=== PATIENT | female | born 1970 | race Caucasian/White ===

== ENCOUNTER → 2017-06-19 | Outpatient (CLI) | payer MEDICARE, MEDICAID ==
--- NOTE | 2017-06-21 17:09 | MAM ---
EXAM DESCRIPTION: 3D Screening BILATERAL : Digital Mammography. CLINICAL HISTORY: 46 years Female SCREENING . No complaints. Mother with breast cancer. Hysterectomy. Currently on HRT. COMPARISON: 2-D digital screening bilateral study 01/24/2008. No prior reports available. TECHNIQUE: Bilateral CC and MLO projection full-field images, 3-D tomosynthesis digital mammographic technique. Also bilateral synthesized CC/ MLO full-field images. CAD not utilized. FINDINGS: The breast parenchymal density pattern is: Scattered areas of fibroglandular density. No skin thickening or nipple retraction bilateral solitary microcalcifications. No focal, stellate mass or density, focal asymmetry , and no suspicious microcalcifications bilaterally. Stable mammograms compared to prior study, taking into account differences in mammographic technique IMPRESSION: BI-RADS CATEGORY: 2 - BENIGN FINDINGS. FOLLOW UP: Routine digital bilateral screening, one year interval from June 2017. Written communication explaining the IMPRESSION and follow-up, will be mailed to the patient and referring health care provider. According to the [employer], yearly mammograms are recommended starting at age 40 and continuing as long as a woman is in good health. Any breast change noted on a breast self-exam should be reported promptly to the patient's healthcare provider. Breast MRI is recommended for women with an approximately 20-25% or greater lifetime risk of breast cancer, including women with a strong family history of breast or ovarian cancer and women who have been treated for Hodgkin's disease. A negative mammographic report should not delay tissue diagnosis in patients with significant clinical history or physical findings. Extremely dense breast tissue limits the sensitivity of digital mammography. Electronically signed by: Jm Soriano MD 06/21/2017 5:08 PM [facility]
== END ==
LOC: MAMMO 15:03
PROVIDERS: ATTEND Obstetrics & Gynecology Female Pelvic Medicine and Reconstructive Surgery
DX: Z12.31 Encounter for screening mammogram for malignant neoplasm of breast (principal)

== ENCOUNTER 2017-07-30 01:28 | Emergency (ER) | payer MEDICARE, MEDICAID ==
[2017-07-30] MEDS ORDERED: ALUM & MAG HYDROX-SIMETHICONE 30 ML, LIDOCAINE VISCOUS 2% 15 ML PO ONE ×2 (01:35)
[2017-07-30] MEDS ORDERED: ASPIRIN TABLET 325 MG TAB PO ONE (01:35)
[2017-07-30] MEDS ORDERED: LIDOCAINE HCL 2% (MOUTH-THROAT) 15 ML UD ONE (01:36)
[2017-07-30] MEDS ORDERED: ALUM & MAG HYDROX-SIMETHICONE 30 ML UD ONE (01:36)
[2017-07-30] MEDS ORDERED: NITROGLYCERIN 0.4 MG 25 EA TAB SL ONE ×2 (02:05)
[2017-07-30 02:16] VITALS: O2SAT 99
[2017-07-30] MEDS ORDERED: MORPHINE SULFATE INJ 10 MG/ML VIAL IV ONE (02:23)
[2017-07-30] MEDS ORDERED: HEPARIN SODIUM (PORCINE) 5,000 U/ML VIAL IV ONE (02:24)
[2017-07-30] MEDS ORDERED: CLOPIDOGREL 75 MG TAB PO ONE (02:25)
[2017-07-30] MEDS ORDERED: NITROGLYCERIN 2% 1 GM UD TOP ONE ×2 (02:33→02:34)
--- NOTE | 2017-07-30 02:37 | ED.PDOC ---
History of Present Illness - General Chief Complaint: Chest Pain/[place] Stated Complaint: chest pain, epigastric pain Time Seen by Provider: 07/30/17 01:35 Source: patient Exam Limitations: no limitations - History of Present Illness Initial Comments: the patient is a 46-year-old [place] female presenting to the emergency room secondary to anterior substernal chest pain that is radiating towards the right shoulder starting approximately one hour prior to arrival. She was sitting when it started. No nausea or vomiting. It was giving some cramping up the back of her neck as well. No palpitations. She rated the pain an 8 or 9 out of 10. No history of any coronary artery disease but she does have essentially every older family member with significant coronary artery disease. Coronary artery disease starting her family in the late 40s. The patient does have a history of morbid obesity, hypertension and hypercholesterolemia. She is also smoked for at least 20 years. Sublingual nitroglycerin did bring the chest pain down from an 8 to a 3. Vital signs have remained stable. the patient does have a long-standing history of reflux but has been off medications for the better part of the year. She reports that this does not really feel like her previous reflux episodes. No recent dietary changes. She did recently decrease her smoking intake to allow for foot surgery in the coming weeks. Timing/Duration: 1 hour Severity: severe Improving Factors: nothing Worsening Factors: nothing Associated Symptoms: chest pain, shortness of breath - mild Allergies/Adverse Reactions: Allergies Sulfa Antibiotics Allergy (Verified 07/30/17 01:33) Review of Systems - Review of Systems Constitutional: States: no symptoms reported EENTM: States: no symptoms reported Respiratory: States: short of breath - mild Cardiology: States: chest pain Gastrointestinal/Abdominal: States: no symptoms reported Genitourinary: States: no symptoms reported Musculoskeletal: States: no symptoms reported Skin: States: no symptoms reported Neurological: States: no symptoms reported Endocrine: States: no symptoms reported All other Systems: No Change from Baseline Past Medical History (General) - Patient Medical History Hx Asthma: No Hx of COPD: No Hx Cardiac Disorders: No Hx Congestive Heart Failure: Yes Hx Hypertension: No Hx Diabetes: No Hx Gastroesophageal Reflux: No Hx Renal Disease: No Surgical History: Hysterectomy, other - Vaccination History Hx Tetanus, Diphtheria Vaccination: No Hx Influenza Vaccination: No - Social History Hx Tobacco Use: Yes - "trying to quit" Hx Alcohol Use: Yes - seldom Family Medical History - Family History Grandparents Hx Family Congestive Heart Failure: Yes Hx Family Hypertension: Yes Hx Cardiac Disease: Yes Physical Exam - Physical Exam General Appearance: Alert, Anxious Eye Exam: bilateral normal Ears, Nose, Throat: hearing grossly normal, normal ENT inspection, normal pharynx Neck: full range of motion, supple Respiratory: chest non-tender, lungs clear, normal breath sounds, no respiratory distress, no accessory muscle use Cardiovascular/Chest: normal peripheral pulses, regular rate, rhythm, no edema Peripheral Pulses: radial,right: 2+, radial,left: 2+, dorsalis pedis,right: 2+, dorsalis pedis,left: 2+ Gastrointestinal/Abdominal: non tender, soft Rectal Exam: deferred Back Exam: normal inspection, no CVA tenderness, no vertebral tenderness Extremity: normal range of motion, non-tender, no pedal edema, no calf tenderness, normal capillary refill 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 There are no obvious EKG changes at this point and her first set of cardiac enzymes are negative. The patient has been dosed with aspirin, nitrates, heparin, Plavix and morphine. Vital signs have remained stable. The patient is going to be transferred to [facility] for further cardiac evaluation. Transferred for higher level of care. Acceptance at referral Center is appreciated. - Results/Orders Results/Orders: Laboratory Tests 07/30/17 07/30/17 07/30/17 01:45 01:45 01:45 WBC 8.7 RBC 4.85 Hgb 15.1 Hct 43.5 MCV 89.6 MCH 31.1 H MCHC 34.7 RDW 13.1 Plt Count 195 MPV 9.6 Absolute Neuts (auto) 4.00 Absolute Lymphs (auto) 3.60 H Absolute Monos (auto) 0.70 Absolute Eos (auto) 0.20 Absolute Basos (auto) 0.10 Neutrophils % 46.5 Lymphocytes % 41.6 Monocytes % 8.4 Eosinophils % 2.0 Basophils % 1.5 PT 10.4 INR 0.920 PTT (SP) 30.0 D-Dimer, Quantitative Sodium 138 Potassium 4.2 Chloride 105 Carbon Dioxide 27 Anion Gap 10.2 L BUN 15 Creatinine 0.89 BUN/Creatinine Ratio 16.9 Random Glucose 120 H Serum Osmolality 277.7 Calcium 9.9 Magnesium 2.2 Total Bilirubin < 0.2 L AST 21 ALT 17 Alkaline Phosphatase 72 Creatine Kinase 139 CK-MB (CK-2) 1.4 CK-MB (CK-2) % Not Reportable Troponin I < 0.02 B-Natriuretic Peptide 7.7 Serum Total Protein 7.0 Albumin 4.1 Globulin 2.9 Albumin/Globulin Ratio 1.4 07/30/17 01:45 WBC RBC Hgb Hct MCV MCH MCHC RDW Plt Count MPV Absolute Neuts (auto) Absolute Lymphs (auto) Absolute Monos (auto) Absolute Eos (auto) Absolute Basos (auto) Neutrophils % Lymphocytes % Monocytes % Eosinophils % Basophils % PT INR PTT (SP) D-Dimer, Quantitative < 230 Sodium Potassium Chloride Carbon Dioxide Anion Gap BUN Creatinine BUN/Creatinine Ratio Random Glucose Serum Osmolality Calcium Magnesium Total Bilirubin AST ALT Alkaline Phosphatase Creatine Kinase CK-MB (CK-2) CK-MB (CK-2) % Troponin I B-Natriuretic Peptide Serum Total Protein Albumin Globulin Albumin/Globulin Ratio EKG shows mild sinus bradycardia rate of 58 bpm. Normal QT interval. No acute ST segment changes concerning for ischemia. Chest x-ray shows no significant pathology. No evidence of pneumonia or pneumothorax. No overt fluid overload. Departure - Departure Clinical Impression: Unstable angina pectoris Disposition: Transfer to Hospital Transfer to Outside Facility - Transfer Information Accepting Provider:: dr velasquez Accepting Facility: [place] Reason for Transfer: required specialist not available
--- NOTE | 2017-07-30 02:58 | RAD ---
Examination: XR CHEST 1 VIEW dated 07/30/2017 1:36 AM CDT History: right sided chest pain Comparison: None Technique: 1 view chest Findings: The lungs are clear bilaterally. No pneumothorax or pleural effusion. The cardiomediastinal silhouette is within normal limits. Impression: No acute disease. Electronically signed by: Kye Romero MD 07/30/2017 2:55 AM CDT
[2017-07-30 03:17] VITALS: BP 158/77; TEMP 97.7
== END 2017-07-30 03:27 | disposition short-term general hospital (02) ==
LOC: ER 01:28
DX: I20.0 Unstable angina (principal); I50.9 Heart failure, unspecified; F17.200 Nicotine dependence, unspecified, uncomplicated; Z82.49 Family history of ischemic heart disease and other diseases of the circulatory system
CPT/HCPCS: 36415; 71045; 80053; 82550; 82553; 83735; 83880; 84484; 85025; 85379; 85610; 85730; 93005; J1644; J2270